=== PATIENT | female | born 2000 | race Two or more races ===

== ENCOUNTER 2022-08-02 13:23 | Emergency (ER) | payer OTHER ==
[~2022-08-02] VITALS: Ht 170.2 cm; Wt 57.6 kg
[2022-08-02] MEDS ORDERED: BACTRIM DS TAB1 EACH PO (18:45)
== END 2022-08-02 18:56 | disposition home or self-care (01) ==
LOC: ER 13:23
DX: N39.0 Urinary tract infection, site not specified (principal); Z20.822 Contact with and (suspected) exposure to COVID-19

== ENCOUNTER 2022-08-04 09:22 | Emergency (ER) | payer OTHER ==
[~2022-08-04] VITALS: Ht 170.2 cm; Wt 57.6 kg
[~2022-08-04 09:22] MED LIST: BACTRIM DS TAB1 EACH PO
[2022-08-04] MEDS ORDERED: CLONAZEPAM2 MG (09:34)
== END 2022-08-04 23:40 | disposition home or self-care (01) ==
LOC: ER 09:22
DX: N39.0 Urinary tract infection, site not specified (principal); Z20.822 Contact with and (suspected) exposure to COVID-19